=== PATIENT | female | born 1995 | race Two or more races ===

== ENCOUNTER 2016-10-13 23:42 | Inpatient (IN) | payer MEDICAID ==
[2016-10-13] MEDS ORDERED: Sodium Chloride 0.9% 1,000 ML IV ONE (23:51)
[2016-10-14] MEDS ORDERED: Flumazenil 0.1 m/mL 5mL Vial IVP ONE (00:12)
[2016-10-14] MEDS ORDERED: Naloxone 0.4 mg/mL 1mL Vial ONE ×2 (00:15→00:20)
[2016-10-14 00:21] LABS: % BASOPHILS 0.5 % (0.0-2.0); % EOSINOPHILS 1.4 % (0.0-5.0); % LYMPHOCYTES 41.4 % (20.0-50.0); % MONOCYTES 11.5 % (2.0-10.0); % NEUTROPHILS 45.2 % (40.0-80.0); HEMOGLOBIN 13.3 gm/dL (11.7-15.5); MEAN CELL VOLUME 93.5 fl (81-100); MEAN CORPUSCULAR HEMOGLOBIN 31.1 pg (27.0-31.0); MEAN CORPUSCULAR HGB CONC 33.3 pg (28.0-36.0); MEAN PLATELET VOLUME 7.5 fl; PLATELET COUNT 251 Th/cmm (150-400); RED BLOOD COUNT 4.27 Mil/cmm (3.80-5.10); RED CELL DISTRIBUTION WIDTH 12.2 % (11.5-20.0); WHITE BLOOD COUNT 11.3 Th/cmm (4.8-10.8)
[2016-10-14 00:33] LABS: INR 1.15 (0.5-1.4); PROTHROMBIN TIME (TEST) 12.1 SECONDS (9.5-11.5)
[2016-10-14 00:34] LABS: CHOLESTEROL 108 mg/dL (<200); TRIGLYCERIDES 42 mg/dL (<150)
[2016-10-14 00:36] LABS: ALB/GLOB RATIO 1.7 (1.0-1.8); ALKALINE PHOSPHATASE 42 U/L (34-104); ANION GAP 11.9 (7.0-16.0); BILIRUBIN,TOTAL 1.6 mg/dL (0.3-1.0); BUN - UREA NITROGEN 5 mg/dL (7-25); BUN/CREATININE RATIO 8.3; CALCIUM SERUM 8.7 mg/dL (8.6-10.3); CARBON DIOXIDE 21.6 mEq/L (21.0-31.0); CHLORIDE 87 mEq/L (98-107); CREATININE - SERUM 0.6 mg/dL (0.6-1.2); GLUCOSE 100 mg/dL (70-105); POTASSIUM SERUM 3.5 mEq/L (3.5-5.1); SGOT 24 U/L (13-39); SGPT/ALT 17 U/L (7-52)
[2016-10-14] MEDS ORDERED: Naloxone 0.4 mg/mL 1mL Vial IV ONE ×2 (00:39→00:40)
[2016-10-14] MEDS ORDERED: Flumazenil 0.1 m/mL 5mL Vial IVP STA ×2 (00:41→00:42)
[2016-10-14 00:42] LABS: SODIUM SERUM 117 mEq/L (136-145)
[2016-10-14] MEDS ORDERED: KCL 20mEq/100mL Premix 20 MEQ/100 ML PIGGYBACK IV ONE (00:49)
[2016-10-14] MEDS: KCL 20mEq/100mL Premix 20 MEQ/100 ML PIGGYBACK IV ONE ×2 (00:54→03:51)
[2016-10-14] MEDS ORDERED: Sodium Chloride 0.9% 1,000 ML IV ONE (01:05)
[2016-10-14] MEDS ORDERED: Haloperidol Lactate 5 mg/mL 1mL Vial ONE (01:35)
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
[2016-10-14] MEDS ORDERED: Haloperidol Lactate 5 mg/mL 1mL Vial IVP ONE (02:20)
[2016-10-14] MEDS ORDERED: D5-0.45NS 1,000 ML IV SCH (03:32)
[2016-10-14 07:54] LABS: URINE BILIRUBIN NEGATIVE (NEGATIVE); URINE BLOOD SMALL (NEGATIVE); URINE GLUCOSE (UA) NEGATIVE (NEGATIVE); URINE KETONE 40 mg/dL (NEGATIVE); URINE PROTEIN NEGATIVE (NEGATIVE); URINE UROBILINOGEN 0.2 E.U./dL (0.2 - 1.0)
[2016-10-14 07:57] LABS: URINE COLOR YELLOW
[2016-10-14 07:58] LABS: URINE BACTERIA OCCASIONAL /hpf (NONE SEEN); URINE EPITHELIAL CELLS OCCASIONAL /lpf (FEW); URINE WBC 0-2 /hpf (0-5)
[2016-10-14] MEDS ORDERED: D5-0.9%NS 1,000 ML IV SCH ×2 (08:51→13:19)
[2016-10-14 09:07] LABS: AMPHETAMINE URINE NEGATIVE (NEGATIVE); BARBITURATES URINE NEGATIVE (NEGATIVE)
[2016-10-14 09:08] LABS: METHADONE URINE NEGATIVE (NEGATIVE)
--- NOTE | 2016-10-14 09:13 | Diagnostic Imaging Report ---
Head CT without intravenous contrast Indication: Seizure Comparison: None Technique: Axial images were obtained from the vertex to the skull base without IV contrast. Coronal reconstructions were made. Total DLP: 729, [id number] FINDINGS: Images of the brain obtained without contrast demonstrate no acute hemorrhage. No mass lesions identified. The ventricles and basal cisterns are patent. The collier-white matter differentiation is preserved. There is no mass effect or midline shift. No skull fractures identified. No soft tissue swelling. There is mild mucosal thickening of the paranasal sinuses. IMPRESSION: No acute intracranial abnormality.
[2016-10-14 09:34] LABS: % BASOPHILS 2.5 % (0.0-2.0); % EOSINOPHILS 0.1 % (0.0-5.0); % LYMPHOCYTES 12.4 % (20.0-50.0); % MONOCYTES 8.2 % (2.0-10.0); % NEUTROPHILS 76.8 % (40.0-80.0); HEMOGLOBIN 15.1 gm/dL (11.7-15.5); MEAN CELL VOLUME 92.8 fl (81-100); MEAN CORPUSCULAR HEMOGLOBIN 30.9 pg (27.0-31.0); MEAN CORPUSCULAR HGB CONC 33.3 pg (28.0-36.0); MEAN PLATELET VOLUME 7.5 fl; NEUTROPHILE ABSOLUTE 10.8 Th/cmm (1.8-8.0); PLATELET COUNT 290 Th/cmm (150-400); RED BLOOD COUNT 4.88 Mil/cmm (3.80-5.10); RED CELL DISTRIBUTION WIDTH 12.2 % (11.5-20.0)
[2016-10-14 09:40] LABS: WHITE BLOOD COUNT 14.1 Th/cmm (4.8-10.8)
[2016-10-14 09:41] LABS: HEMATOCRIT 45.3 % (35.0-45.0)
--- NOTE | 2016-10-14 09:43 | History and Physical ---
History of Present Illness - HPI Chief Complaint: Altered mental status HPI: 20 year old female who presents to [facility] for possible seizure and change in mental status. Apparently her family members had witness a possible seizure event yesterday at her home which lasted about one minute. The patient has no previous history of seizure disorder. She had been vomiting all afternoon and currently takes no medications. The family members are concern that she may have taken drugs. She is not in school and not working. She has no obvious trauma noted. While in the ER the patient underwent CT head which did not show any acute changes. She was noted to have an initial NA 117. She was given IV fluids while in the ER. Patient was subsequently transferred to ICU for further evaluation and treatment. Vital Signs: Last Vital Signs Temp 98.2 F 10/14/16 04:00 Pulse 80 10/14/16 06:56 Resp 18 10/14/16 06:56 BP 107/60 10/14/16 06:56 Pulse Ox 100 10/14/16 06:56 Past Medical History Cardiovascular: Report: No Pertinent Hx Pulmonary: Report: No Pertinent Hx TURNER OFF: Report: No Pertinent Hx GI: Report: No Pertinent Hx Psych: Report: No Pertinent Hx Musculoskeletal: Report: No Pertinent Hx Rheumatologic: Report: No pertinent Hx Infectious Disease: Report: No Pertinent Hx Renal/: Report: No Pertinent Hx Endocrine: Report: No Pertinent Hx Dermatology: Report: No Pertinent Hx - Past Surgical History Past Surgical History: No pertinent Hx Family Medical History - Family Member Mother History Unknown: Yes Social History Smoke: No Alcohol: None Drugs: None Lives: Alone - Medications Home Medications: Home Medication Medication Instructions Recorded Type Unobtainable [Unobtainable] 10/13/16 History - Allergies Allergies/Adverse Reactions: Allergies Allergy/AdvReac Type Severity Reaction Status Date / Time No Known Allergies Allergy Verified 10/13/16 23:52 Review of Systems - Review of Systems Constitutional: Report: No Significant Eyes: Report: No Significant ENT: Report: No Significant Respiratory: Report: No Significant Cardiovascular: Report: No Significant Gastrointestinal: Report: Nausea Genitourinary: Report: No Significant Musculoskeletal: Report: No Significant Skin: Report: No Significant Neurological: Report: Confusion, Other (ALOC) Physical Exam - Physical Exam HEENT: Report: Ears Nose Throat within normal limits, Pharnyx within normal limits Neck: Report: Within normal limits, Thyromegaly Cardiovascular Systems: Report: +s1/s2 noted, Regular, Rate and Rhythm Respiratory: Report: Breath Sounds are within normal limits, Clear to Auscultation of lung ny Abdomen: Report: Non-tender to palpation Back: Report: Inspection of back is within normal limits. Extremities: Report: Non-tender to palpation. Skin: Report: Color of skin is within normal limits - Lab Results All Lab Results last 24 hours: Laboratory Last Values WBC 11.3 Th/cmm (4.8-10.8) H 10/14/16 00:05 RBC 4.27 Mil/cmm (3.80-5.10) 10/14/16 00:05 Hgb 13.3 gm/dL (11.7-15.5) 10/14/16 00:05 Hct 40.0 % (35.0-45.0) 10/14/16 00:05 MCV 93.5 fl (81-100) 10/14/16 00:05 MCH 31.1 pg (27.0-31.0) H 10/14/16 00:05 MCHC Differential 33.3 pg (28.0-36.0) 10/14/16 00:05 RDW 12.2 % (11.5-20.0) 10/14/16 00:05 Plt Count 251 Th/cmm (150-400) 10/14/16 00:05 MPV 7.5 fl 10/14/16 00:05 Neutrophils % 45.2 % (40.0-80.0) 10/14/16 00:05 Lymphocytes % 41.4 % (20.0-50.0) 10/14/16 00:05 Monocytes % 11.5 % (2.0-10.0) H 10/14/16 00:05 Eosinophils % 1.4 % (0.0-5.0) 10/14/16 00:05 Basophils % 0.5 % (0.0-2.0) 10/14/16 00:05 PT 12.1 SECONDS (9.5-11.5) H 10/14/16 00:05 INR 1.15 (0.5-1.4) 10/14/16 00:05 PTT (Actin FS) 26.1 SECONDS (26.0-38.0) 10/14/16 00:05 Sodium 117 mEq/L (136-145) L* 10/14/16 00:05 Potassium 3.5 mEq/L (3.5-5.1) 10/14/16 00:05 Chloride 87 mEq/L (98-107) L 10/14/16 00:05 Carbon Dioxide 21.6 mEq/L (21.0-31.0) 10/14/16 00:05 Anion Gap 11.9 (7.0-16.0) 10/14/16 00:05 BUN 5 mg/dL (7-25) L 10/14/16 00:05 Creatinine 0.6 mg/dL (0.6-1.2) 10/14/16 00:05 Est GFR ( Amer) > 60.0 ml/min (>90) 10/14/16 00:05 Est GFR (Non-Af Amer) > 60.0 ml/min 10/14/16 00:05 BUN/Creatinine Ratio 8.3 10/14/16 00:05 Glucose 100 mg/dL (70-105) 10/14/16 00:05 POC Glucose 108 MG/DL (70-105) H 10/14/16 00:16 Calcium 8.7 mg/dL (8.6-10.3) 10/14/16 00:05 Total Bilirubin 1.6 mg/dL (0.3-1.0) H 10/14/16 00:05 AST 24 U/L (13-39) 10/14/16 00:05 ALT 17 U/L (7-52) 10/14/16 00:05 Alkaline Phosphatase 42 U/L (34-104) 10/14/16 00:05 Troponin I 0.01 ng/mL (0.01-0.05) 10/14/16 00:05 Total Protein 6.7 gm/dL (6.0-8.3) 10/14/16 00:05 Albumin 4.2 gm/dL (3.7-5.3) 10/14/16 00:05 Globulin 2.5 gm/dL 10/14/16 00:05 Albumin/Globulin Ratio 1.7 (1.0-1.8) 10/14/16 00:05 Triglycerides 42 mg/dL (<150) 10/14/16 00:05 Cholesterol 108 mg/dL (<200) 10/14/16 00:05 LDL Cholesterol Direct 51 mg/dL (75-193) L 10/14/16 00:05 HDL Cholesterol 55 mg/dL (23-92) 10/14/16 00:05 TSH 2.44 uIU/ml (0.34-5.60) 10/14/16 00:05 Serum , Qual NEGATIVE (NEGATIVE) 10/14/16 00:05 Urine Source CLEAN C 10/14/16 07:30 Urine Color YELLOW 10/14/16 07:30 Urine Clarity SL. CLOUDY (CLEAR) 10/14/16 07:30 Urine pH 6.0 (4.6 - 8.0) 10/14/16 07:30 Ur Specific [place] 1.010 (1.005-1.030) 10/14/16 07:30 Urine Protein NEGATIVE mg/dL (NEGATIVE) 10/14/16 07:30 Urine Glucose (UA) NEGATIVE mg/dL (NEGATIVE) 10/14/16 07:30 Urine Ketones 40 mg/dL (NEGATIVE) H 10/14/16 07:30 Urine Blood SMALL (NEGATIVE) H 10/14/16 07:30 Urine Nitrate NEGATIVE (NEGATIVE) 10/14/16 07:30 Urine Bilirubin NEGATIVE (NEGATIVE) 10/14/16 07:30 Urine Urobilinogen 0.2 E.U./dL (0.2 - 1.0) 10/14/16 07:30 Ur Leukocyte Esterase NEGATIVE (NEGATIVE) 10/14/16 07:30 Urine RBC 1-2 /hpf (0-5) 10/14/16 07:30 Urine WBC 0-2 /hpf (0-5) 10/14/16 07:30 Ur Epithelial Cells OCCASIONAL /lpf (FEW) 10/14/16 07:30 Urine Bacteria OCCASIONAL /hpf (NONE SEEN) 10/14/16 07:30 Urine Test NEGATIVE 10/14/16 07:30 Salicylates < 25.0 mg/L (30.0-100.0) L 10/14/16 00:05 Urine Opiates Screen NEGATIVE (NEGATIVE) 10/14/16 07:30 Urine Methadone Screen NEGATIVE (NEGATIVE) 10/14/16 07:30 Acetaminophen < 10.0 ug/mL (10.0-30.0) L 10/14/16 00:05 Ur Barbiturates Screen NEGATIVE (NEGATIVE) 10/14/16 07:30 Ur Tricyclics Screen NEGATIVE (NEGATIVE) 10/14/16 07:30 Ur Phencyclidine Scrn NEGATIVE (NEGATIVE) 10/14/16 07:30 Amphetamines Screen NEGATIVE (NEGATIVE) 10/14/16 07:30 U Methamphetamines Scrn NEGATIVE (NEGATIVE) 10/14/16 07:30 U Benzodiazepines Scrn POSITIVE (NEGATIVE) H 10/14/16 07:30 U Cocaine Metab Screen NEGATIVE (NEGATIVE) 10/14/16 07:30 U Cannabinoids Screen POSITIVE (NEGATIVE) H 10/14/16 07:30 Laboratory Results - last 24 hr 10/14/16 10/14/16 10/14/16 07:30 07:30 07:30 Urine Source CLEAN C Urine Color YELLOW Urine Clarity SL. CLOUDY Urine pH 6.0 Ur Specific [place] 1.010 Urine Protein NEGATIVE Urine Glucose (UA) NEGATIVE Urine Ketones 40 H Urine Blood SMALL H Urine Nitrate NEGATIVE Urine Bilirubin NEGATIVE Urine Urobilinogen 0.2 Ur Leukocyte Esterase NEGATIVE Urine RBC 1-2 Urine WBC 0-2 Ur Epithelial Cells OCCASIONAL Urine Bacteria OCCASIONAL Urine Test NEGATIVE Urine Opiates Screen NEGATIVE Urine Methadone Screen NEGATIVE Ur Barbiturates Screen NEGATIVE Ur Tricyclics Screen NEGATIVE Ur Phencyclidine Scrn NEGATIVE Amphetamines Screen NEGATIVE U Methamphetamines Scrn NEGATIVE U Benzodiazepines Scrn POSITIVE H U Cocaine Metab Screen NEGATIVE U Cannabinoids Screen POSITIVE H - Assessment Assessment: ALOC Seizure disorder hyponatremia +Benzodiazepine +THC - Plan Plan: Will obtain a neuro consult with Dr. Brennan. Psychiatric consult with Dr. Kuo. Will order a repeat CBC, CMP. Will continue IV fluid hydration. Will order a nephrology consult with Dr. Barraza. Will keep patient NPO for now.
[2016-10-14 09:56] LABS: ALB/GLOB RATIO 1.5 (1.0-1.8); ALKALINE PHOSPHATASE 46 U/L (34-104); ANION GAP 14.2 (7.0-16.0); BILIRUBIN,TOTAL 1.6 mg/dL (0.3-1.0); BUN - UREA NITROGEN 5 mg/dL (7-25); BUN/CREATININE RATIO 8.3; CALCIUM SERUM 9.4 mg/dL (8.6-10.3); CARBON DIOXIDE 20.7 mEq/L (21.0-31.0); CHLORIDE 98 mEq/L (98-107); CREATININE - SERUM 0.6 mg/dL (0.6-1.2); GLUCOSE 98 mg/dL (70-105); POTASSIUM SERUM 4.9 mEq/L (3.5-5.1); SGOT 35 U/L (13-39); SGPT/ALT 20 U/L (7-52); SODIUM SERUM 128 mEq/L (136-145)
--- NOTE | 2016-10-14 13:18 | Diagnostic Imaging Report ---
CHEST X-RAY: AP view INDICATION: Aspiration COMPARISON: None FINDINGS: There is no focal consolidation or pleural effusions The heart is normal in size. There is mild spinal scoliosis. IMPRESSION: No focal consolidation. No evidence of aspiration.
[2016-10-14] MEDS: cefTRIAXone 1 GM in Sodium Chloride 0.9% 50 ML IV SCH (15:02)
[2016-10-14] MEDS ORDERED: Haloperidol Lactate 5 mg/mL 1mL Vial IM ONE (15:05)
--- NOTE | 2016-10-14 19:10 | Consultation ---
DATE OF CONSULTATION: 10/14/2016 INTERNATIONAL TRADE SPECIALIST: Erich Barraza M.D. REASON FOR CONSULTATION: Electrolyte imbalance and fluid management. HISTORY OF PRESENT ILLNESS: This is a 20-year-old female with no past medical history who was brought in because of altered level of consciousness. Three days prior to admission, the patient became paranoid, anxious with some panic attacks. She would leave the house and roam in the streets for several hours. She thought her food was tainted with poison, thus she would drink lots of water and only eat some fruits. A few hours prior to admission, she had generalized tonic-clonic seizure activity with this by her family for approximately a minute. She remained confused, disoriented, combative/aggressive/belligerent as well as delusional. She was then brought to the Emergency Room. CT scan of the head was negative. Her temperature was 98.2 with a white count of 11.3. Urine was positive for benzodiazepine as well as cannabinoids. She came in with a sodium of 117. She was started on normal saline and her sodium today was 128. PAST MEDICAL HISTORY: None. SOCIAL HISTORY: No history of smoking or alcohol abuse. She is a student, but not enrolled in school right now. FAMILY HISTORY: Noncontributory to present illness. REVIEW OF SYSTEMS: I was not able to obtain directly from the patient because she is currently sedated. PHYSICAL EXAMINATION: GENERAL: The patient is arousable, periods of agitation. VITAL SIGNS: Her temperature is 99, pulse 91, and blood pressure 112/51. SKIN: Good turgor, warm. No rash, no jaundice appreciated. HEENT: Head is normocephalic and atraumatic. Eyes: Extraocular muscles are intact. Pupils are equal, round, and reactive to light and accommodates. Anicteric sclerae. Waka conjunctivae. Nose: Midline nasal septum. Mouth: Dry mucosa with adequate dentition. NECK: Supple. No adenopathy, no thyromegaly, and no bruits. Trachea palpated in the midline. CHEST AND CVS: S1 and S2. No rub, murmur, nor gallop appreciated. Point of maximal impulse fifth intercostal space, left midclavicular line. No abdominal or femoral bruits appreciated. LUNGS: Equal expansion. No use of accessory muscles. No supraclavicular retractions, decreased breath sounds, clear to auscultation without any wheeze. BREASTS: Symmetrical, without any discharge. ABDOMEN: Flat, soft. Positive for bowel sounds. No bruits either diastolic or systolic. EXTREMITIES: No evidence of any edema, cyanosis, nor clubbing with palpable femoral, popliteal, and dorsalis pedis pulses. NEUROLOGIC: The patient is sedated and uncooperative at the present time. So, I was not able to pursue further my neuro exam. LABORATORY DATA: White count 14.1, hemoglobin 15.1, hematocrit 45, platelets 290,000, polys 76.8%, sodium 128, potassium 3.5, chloride 98, bicarbonate 20, BUN 5, creatinine 0.6, calcium 9.4. Total bili is 1.6, albumin 4.5, and urine specific gravity is 1.010. Ketones is 40. IMPRESSION: 1. Severe hyponatremia secondary to water intoxication with a very dilute urine, however, possibility of syndrome of inappropriate antidiuretic hormone secretion secondary to unknown drugs, could be contributory. 2. Seizure activity secondary to hyponatremia and again possibly from unknown drugs. 3. Acute psychotic secondary to unknown drugs that were taken. Presence of ketones in the urine, possibly result of starvation for the last few days to starvation ketosis. 5. Mild acute liver failure, etiology possibly again from intake of unknown drugs. PLAN: 1. Continue with normal saline. 2. Neuro checks. 3. Urinalysis. 4. Urine sodium and osmolality. 5. Serum osmolality and uric acid. Thank you, Dr. Gardner for this consult. I will follow the patient closely with you. JOB# [id number]
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
[2016-10-15 05:45] LABS: % BASOPHILS 0.7 % (0.0-2.0); % EOSINOPHILS 0.7 % (0.0-5.0); % LYMPHOCYTES 41.9 % (20.0-50.0); % MONOCYTES 11.1 % (2.0-10.0); % NEUTROPHILS 45.6 % (40.0-80.0); HEMATOCRIT 46.6 % (35.0-45.0); HEMOGLOBIN 15.5 gm/dL (11.7-15.5); MEAN CELL VOLUME 92.2 fl (81-100); MEAN CORPUSCULAR HEMOGLOBIN 30.7 pg (27.0-31.0); MEAN CORPUSCULAR HGB CONC 33.3 pg (28.0-36.0); MEAN PLATELET VOLUME 7.9 fl; NEUTROPHILE ABSOLUTE 4.2 Th/cmm (1.8-8.0); PLATELET COUNT 273 Th/cmm (150-400); RED BLOOD COUNT 5.06 Mil/cmm (3.80-5.10); RED CELL DISTRIBUTION WIDTH 12.4 % (11.5-20.0)
[2016-10-15 05:48] LABS: WHITE BLOOD COUNT 9.3 Th/cmm (4.8-10.8)
[2016-10-15 05:56] LABS: ANION GAP 12.2 (7.0-16.0); BUN - UREA NITROGEN 6 mg/dL (7-25); BUN/CREATININE RATIO 8.6; CALCIUM SERUM 9.7 mg/dL (8.6-10.3); CHLORIDE 101 mEq/L (98-107); CREATININE - SERUM 0.7 mg/dL (0.6-1.2); GLUCOSE 105 mg/dL (70-105); POTASSIUM SERUM 3.2 mEq/L (3.5-5.1); SODIUM SERUM 135 mEq/L (136-145); URIC ACID 3.6 mg/dL (2.3-6.6)
[2016-10-15] MEDS ORDERED: D5-0.9NS w/40 mEq KCL 1,000 ML IV SCH (06:49)
--- NOTE | 2016-10-15 08:23 | General Progress Note ---
Subjective - Review of Systems Service Date: 10/15/16 Subjective: Awake,Alert,Afebrile. Objective - Results Result Diagrams: 10/15/16 05:00 10/15/16 05:00 Recent Labs: Laboratory Last Values WBC 9.3 Th/cmm (4.8-10.8) D 10/15/16 05:00 RBC 5.06 Mil/cmm (3.80-5.10) 10/15/16 05:00 Hgb 15.5 gm/dL (11.7-15.5) 10/15/16 05:00 Hct 46.6 % (35.0-45.0) H 10/15/16 05:00 MCV 92.2 fl (81-100) 10/15/16 05:00 MCH 30.7 pg (27.0-31.0) 10/15/16 05:00 MCHC Differential 33.3 pg (28.0-36.0) 10/15/16 05:00 RDW 12.4 % (11.5-20.0) 10/15/16 05:00 Plt Count 273 Th/cmm (150-400) 10/15/16 05:00 MPV 7.9 fl 10/15/16 05:00 Neutrophils % 45.6 % (40.0-80.0) 10/15/16 05:00 Lymphocytes % 41.9 % (20.0-50.0) 10/15/16 05:00 Monocytes % 11.1 % (2.0-10.0) H 10/15/16 05:00 Eosinophils % 0.7 % (0.0-5.0) 10/15/16 05:00 Basophils % 0.7 % (0.0-2.0) 10/15/16 05:00 PT 12.1 SECONDS (9.5-11.5) H 10/14/16 00:05 INR 1.15 (0.5-1.4) 10/14/16 00:05 PTT (Actin FS) 26.1 SECONDS (26.0-38.0) 10/14/16 00:05 Sodium 135 mEq/L (136-145) L 10/15/16 05:00 Potassium 3.2 mEq/L (3.5-5.1) L 10/15/16 05:00 Chloride 101 mEq/L (98-107) 10/15/16 05:00 Carbon Dioxide 25.0 mEq/L (21.0-31.0) 10/15/16 05:00 Anion Gap 12.2 (7.0-16.0) 10/15/16 05:00 BUN 6 mg/dL (7-25) L 10/15/16 05:00 Creatinine 0.7 mg/dL (0.6-1.2) 10/15/16 05:00 Est GFR ( Amer) > 60.0 ml/min (>90) 10/15/16 05:00 Est GFR (Non-Af Amer) > 60.0 ml/min 10/15/16 05:00 BUN/Creatinine Ratio 8.6 10/15/16 05:00 Glucose 105 mg/dL (70-105) 10/15/16 05:00 POC Glucose 108 MG/DL (70-105) H 10/14/16 00:16 Uric Acid 3.6 mg/dL (2.3-6.6) 10/15/16 05:00 Calcium 9.7 mg/dL (8.6-10.3) 10/15/16 05:00 Total Bilirubin 1.6 mg/dL (0.3-1.0) H 10/14/16 09:25 AST 35 U/L (13-39) 10/14/16 09:25 ALT 20 U/L (7-52) 10/14/16 09:25 Alkaline Phosphatase 46 U/L (34-104) 10/14/16 09:25 Troponin I 0.01 ng/mL (0.01-0.05) 10/14/16 00:05 Total Protein 7.5 gm/dL (6.0-8.3) 10/14/16 09:25 Albumin 4.5 gm/dL (3.7-5.3) 10/14/16 09:25 Globulin 3.0 gm/dL 10/14/16 09:25 Albumin/Globulin Ratio 1.5 (1.0-1.8) 10/14/16 09:25 Triglycerides 42 mg/dL (<150) 10/14/16 00:05 Cholesterol 108 mg/dL (<200) 10/14/16 00:05 LDL Cholesterol Direct 51 mg/dL (75-193) L 10/14/16 00:05 HDL Cholesterol 55 mg/dL (23-92) 10/14/16 00:05 TSH 2.44 uIU/ml (0.34-5.60) 10/14/16 00:05 Serum , Qual NEGATIVE (NEGATIVE) 10/14/16 00:05 Urine Source CLEAN C 10/14/16 07:30 Urine Color YELLOW 10/14/16 07:30 Urine Clarity SL. CLOUDY (CLEAR) 10/14/16 07:30 Urine pH 6.0 (4.6 - 8.0) 10/14/16 07:30 Ur Specific [place] 1.010 (1.005-1.030) 10/14/16 07:30 Urine Protein NEGATIVE mg/dL (NEGATIVE) 10/14/16 07:30 Urine Glucose (UA) NEGATIVE mg/dL (NEGATIVE) 10/14/16 07:30 Urine Ketones 40 mg/dL (NEGATIVE) H 10/14/16 07:30 Urine Blood SMALL (NEGATIVE) H 10/14/16 07:30 Urine Nitrate NEGATIVE (NEGATIVE) 10/14/16 07:30 Urine Bilirubin NEGATIVE (NEGATIVE) 10/14/16 07:30 Urine Urobilinogen 0.2 E.U./dL (0.2 - 1.0) 10/14/16 07:30 Ur Leukocyte Esterase NEGATIVE (NEGATIVE) 10/14/16 07:30 Urine RBC 1-2 /hpf (0-5) 10/14/16 07:30 Urine WBC 0-2 /hpf (0-5) 10/14/16 07:30 Ur Epithelial Cells OCCASIONAL /lpf (FEW) 10/14/16 07:30 Urine Bacteria OCCASIONAL /hpf (NONE SEEN) 10/14/16 07:30 Ur Random Sodium 61 mmol/L 10/14/16 00:05 Urine Test NEGATIVE 10/14/16 07:30 Salicylates < 25.0 mg/L (30.0-100.0) L 10/14/16 00:05 Urine Opiates Screen NEGATIVE (NEGATIVE) 10/14/16 07:30 Urine Methadone Screen NEGATIVE (NEGATIVE) 10/14/16 07:30 Acetaminophen < 10.0 ug/mL (10.0-30.0) L 10/14/16 00:05 Ur Barbiturates Screen NEGATIVE (NEGATIVE) 10/14/16 07:30 Ur Tricyclics Screen NEGATIVE (NEGATIVE) 10/14/16 07:30 Ur Phencyclidine Scrn NEGATIVE (NEGATIVE) 10/14/16 07:30 Amphetamines Screen NEGATIVE (NEGATIVE) 10/14/16 07:30 U Methamphetamines Scrn NEGATIVE (NEGATIVE) 10/14/16 07:30 U Benzodiazepines Scrn POSITIVE (NEGATIVE) H 10/14/16 07:30 U Cocaine Metab Screen NEGATIVE (NEGATIVE) 10/14/16 07:30 U Cannabinoids Screen POSITIVE (NEGATIVE) H 10/14/16 07:30 RPR NONREACTIVE (NONREACTIVE) 10/14/16 00:05 - Physical Exam Vitals and I&O: Vital Signs Temp 97.0 F 10/15/16 04:00 Pulse 110 10/15/16 04:00 Resp 18 10/15/16 04:00 BP 133/87 10/15/16 04:00 Pulse Ox 100 10/15/16 04:00 Intake & Output 10/14/16 10/15/16 10/15/16 18:59 06:59 18:59 Intake Total 1600 Balance 1600 Weight (lbs) 43.046 kg Intake: Oral 1600 Other: # Voids 2 Active Medications: Current Medications Hydrocortisone (Anusol-Hc) 25 mg RC BID [facility] Stop: 12/14/16 08:59 Ceftriaxone Sodium 1 gm/ (Sodium Chloride) 50 mls @ 100 mls/hr IV Q24HR [facility] Stop: 12/13/16 13:59 Last Admin: 10/14/16 15:02 Dose: Not Given Potassium Chloride/Dextrose/Sod Cl (D5-0.9ns W/40 Meq Kcl) 1,000 mls @ 75 mls/ hr IV .[id number] [facility] Stop: 12/14/16 06:48 Ibuprofen (Motrin) 400 mg PO TID [facility] Stop: 12/14/16 08:59 Lorazepam (Ativan) 1 mg IM Q4HR PRN; Protocol PRN Reason: Agitation Stop: 12/13/16 15:06 Ondansetron HCl (Zofran) 4 mg IV Q6H PRN PRN Reason: Nausea / Vomiting Stop: 12/13/16 03:31 General: Alert, No acute distress HEENT: Atraumatic, PERRLA, EOMI Neck: Supple Cardiovascular: Regular rate, Normal S1, Normal S2 Lungs: Clear to auscultation Abdomen: Bowel sounds Extremities: no Clubbing, no Cyanosis, no Edema Neurological: Normal gait Assessment/Plan - Problem List Patient Problems: All Active Problems Altered mental state (Acute) R41.82 Hypokalemia (Acute) E87.6 Hyponatremia (Acute) E87.1 Low back pain (Acute) M54.5 Positive urine drug screen (Acute) R82.5 Seizure disorder (Acute) G40.909 - Assessment Assessment: altered mental status .... improved. hyponatremia Na 117->128->135 hypokalemia K 3.2 seizure disorder ... neurology consults pending, CT head negative psychiatric disorder ... appreciate psychiatric evaluation. +UDS back pain ... will order ibuprofen PRN hemorrhoids ... will order anusol cream HC - Plan Plan: altered mental status .... improved. hyponatremia Na 117->128->135 hypokalemia K 3.2 seizure disorder ... neurology consults pending, CT head negative psychiatric disorder ... appreciate psychiatric evaluation. +UDS back pain ... will order ibuprofen PRN hemorrhoids ... will order anusol cream Nutritional Asmnt/Malnutr-PDOC - Dietary Evaluation Malnutrition Findings (Please click <Entered> for more info): Nutritional Asmnt/Malnutrition Start: 10/14/16 14: 18 Text: Status: Complete Freq: Document 10/14/16 14:18 GSUN (Rec: 10/14/16 14:44 GSUN [email or web address]) Nutritional Asmnt/Malnutrition Patient General Information Nutritional Screening High Risk Screening Diagnosis ALOC, seizure disorder, positive benzodiazepine, positive THC Pertinent Medical Hx/Surgical Hx No pertinent medical hx Subjective Information 20 year old female from home. Pt admitted due to vomitting, seizure, ALOC. Spoke to family members at bedside in the morning, pt was asleep. Aunt reported pt recently (~3 days ago) began to believe that food are tainted and would only eat raw vegetables and sealed items. Per Aunt, pt is not vegetarian and was eating raw carrots yesterday without difficulties, no allergies. Spoke to pt and father in the afternoon, confirmed with pt above information provided by aunt. Spoke to RN Asya and MD Barraza, pt to be started on soft/bland diet. FNS provided bottled water, jello, pudding. Pt is thin and small frame, no muscle wasting, minimal fat stores. CBW 101.9lb via bedscale. Father stated pt has always been lean. Current Diet Order/ Nutrition Support Soft/bland Pertinent Medications D5-0.9%ns, Zofran Pertinent Labs Reviewed. Nutritional Hx/Data Height 1.68 m Height (Calculated Centimeters) 167.6 Current Weight (lbs) 46.221 kg Weight (Calculated Kilograms) 46.2 Weight (Calculated Grams) 44458.1 [place] Body Weight 130 Weight Status Underweight GI Symptoms Skin Integrity/Comment: José Luis 17. Skin intact. Estimated Nutritional Goals Calories/Kcals/Kg IBW 130lb/59.1kg Kcals Calculated 1478-1773kcal (25-30kcal/kg) Protein Calculated 47-59g (0.8-1g/kg) Fluid: ml 1478-1773ml (1ml/kcal) Nutritional Problem 1. Problem Problem Food, nutrition, and nutrition -related knowledge deficit related to Etiology personal believes, possibly ALOC as aunt reported this is new aeb Signs/Symptoms: pt believes food is tainted, pt believes vitamin D from sun is nutritiously adequate to sustain Intervention/Recommendation Comments 1. When medically appropriate, recommend advancing diet to regular diet. Currently on soft/bland diet, recent seizures. 2. FNS will honor pt's food preferences as able. Aunt reported, information confirmed with pt, that pt began to believe food is tainted around 3 days ago, pt would only tolerate sealed bottles/items and raw vegetables. 3. Monitor weight. CBW 101.9lb during visit, BMI 16.4, underweight, no muscle wasting noted. Expected Outcomes/Goals Expected Outcomes/Goals 1. Pt to resume regular diet and meet at least 75% of estimated nutritional needs with tolerance.
--- NOTE | 2016-10-15 09:50 | Consultation ---
DATE OF CONSULTATION: 10/15/2016 NEUROLOGY CONSULT HISTORY OF PRESENT ILLNESS: The patient is a 20-year-old. Question of seizure at home. Since the patient here, had no seizures. The patient noted to be abnormal behavior, but at the moment seems to be doing okay. She is answering questions. PAST MEDICAL HISTORY: The patient with abnormal behavior. Question of drug. MEDICATIONS: As per reconciliation. Here, the patient is on antibiotics. PAST SURGICAL HISTORY: None recently. REVIEW OF SYSTEMS: No headache. Speech is okay. The patient has no chest pain, no shortness of breath. JOB# [id number]
--- NOTE | 2016-10-15 13:21 | General Progress Note ---
Subjective - Review of Systems Service Date: 10/15/16 Subjective: more cooperative today Objective - Results Result Diagrams: 10/15/16 05:00 10/15/16 05:00 Recent Labs: Laboratory Last Values WBC 9.3 Th/cmm (4.8-10.8) D 10/15/16 05:00 RBC 5.06 Mil/cmm (3.80-5.10) 10/15/16 05:00 Hgb 15.5 gm/dL (11.7-15.5) 10/15/16 05:00 Hct 46.6 % (35.0-45.0) H 10/15/16 05:00 MCV 92.2 fl (81-100) 10/15/16 05:00 MCH 30.7 pg (27.0-31.0) 10/15/16 05:00 MCHC Differential 33.3 pg (28.0-36.0) 10/15/16 05:00 RDW 12.4 % (11.5-20.0) 10/15/16 05:00 Plt Count 273 Th/cmm (150-400) 10/15/16 05:00 MPV 7.9 fl 10/15/16 05:00 Neutrophils % 45.6 % (40.0-80.0) 10/15/16 05:00 Lymphocytes % 41.9 % (20.0-50.0) 10/15/16 05:00 Monocytes % 11.1 % (2.0-10.0) H 10/15/16 05:00 Eosinophils % 0.7 % (0.0-5.0) 10/15/16 05:00 Basophils % 0.7 % (0.0-2.0) 10/15/16 05:00 PT 12.1 SECONDS (9.5-11.5) H 10/14/16 00:05 INR 1.15 (0.5-1.4) 10/14/16 00:05 PTT (Actin FS) 26.1 SECONDS (26.0-38.0) 10/14/16 00:05 Sodium 135 mEq/L (136-145) L 10/15/16 05:00 Potassium 3.2 mEq/L (3.5-5.1) L 10/15/16 05:00 Chloride 101 mEq/L (98-107) 10/15/16 05:00 Carbon Dioxide 25.0 mEq/L (21.0-31.0) 10/15/16 05:00 Anion Gap 12.2 (7.0-16.0) 10/15/16 05:00 BUN 6 mg/dL (7-25) L 10/15/16 05:00 Creatinine 0.7 mg/dL (0.6-1.2) 10/15/16 05:00 Est GFR ( Amer) > 60.0 ml/min (>90) 10/15/16 05:00 Est GFR (Non-Af Amer) > 60.0 ml/min 10/15/16 05:00 BUN/Creatinine Ratio 8.6 10/15/16 05:00 Glucose 105 mg/dL (70-105) 10/15/16 05:00 POC Glucose 108 MG/DL (70-105) H 10/14/16 00:16 Uric Acid 3.6 mg/dL (2.3-6.6) 10/15/16 05:00 Calcium 9.7 mg/dL (8.6-10.3) 10/15/16 05:00 Total Bilirubin 1.6 mg/dL (0.3-1.0) H 10/14/16 09:25 AST 35 U/L (13-39) 10/14/16 09:25 ALT 20 U/L (7-52) 10/14/16 09:25 Alkaline Phosphatase 46 U/L (34-104) 10/14/16 09:25 Troponin I 0.01 ng/mL (0.01-0.05) 10/14/16 00:05 Total Protein 7.5 gm/dL (6.0-8.3) 10/14/16 09:25 Albumin 4.5 gm/dL (3.7-5.3) 10/14/16 09:25 Globulin 3.0 gm/dL 10/14/16 09:25 Albumin/Globulin Ratio 1.5 (1.0-1.8) 10/14/16 09:25 Triglycerides 42 mg/dL (<150) 10/14/16 00:05 Cholesterol 108 mg/dL (<200) 10/14/16 00:05 LDL Cholesterol Direct 51 mg/dL (75-193) L 10/14/16 00:05 HDL Cholesterol 55 mg/dL (23-92) 10/14/16 00:05 TSH 2.44 uIU/ml (0.34-5.60) 10/14/16 00:05 Serum , Qual NEGATIVE (NEGATIVE) 10/14/16 00:05 Urine Source CLEAN C 10/14/16 07:30 Urine Color YELLOW 10/14/16 07:30 Urine Clarity SL. CLOUDY (CLEAR) 10/14/16 07:30 Urine pH 6.0 (4.6 - 8.0) 10/14/16 07:30 Ur Specific [place] 1.010 (1.005-1.030) 10/14/16 07:30 Urine Protein NEGATIVE mg/dL (NEGATIVE) 10/14/16 07:30 Urine Glucose (UA) NEGATIVE mg/dL (NEGATIVE) 10/14/16 07:30 Urine Ketones 40 mg/dL (NEGATIVE) H 10/14/16 07:30 Urine Blood SMALL (NEGATIVE) H 10/14/16 07:30 Urine Nitrate NEGATIVE (NEGATIVE) 10/14/16 07:30 Urine Bilirubin NEGATIVE (NEGATIVE) 10/14/16 07:30 Urine Urobilinogen 0.2 E.U./dL (0.2 - 1.0) 10/14/16 07:30 Ur Leukocyte Esterase NEGATIVE (NEGATIVE) 10/14/16 07:30 Urine RBC 1-2 /hpf (0-5) 10/14/16 07:30 Urine WBC 0-2 /hpf (0-5) 10/14/16 07:30 Ur Epithelial Cells OCCASIONAL /lpf (FEW) 10/14/16 07:30 Urine Bacteria OCCASIONAL /hpf (NONE SEEN) 10/14/16 07:30 Ur Random Sodium 61 mmol/L 10/14/16 00:05 Urine Test NEGATIVE 10/14/16 07:30 Salicylates < 25.0 mg/L (30.0-100.0) L 10/14/16 00:05 Urine Opiates Screen NEGATIVE (NEGATIVE) 10/14/16 07:30 Urine Methadone Screen NEGATIVE (NEGATIVE) 10/14/16 07:30 Acetaminophen < 10.0 ug/mL (10.0-30.0) L 10/14/16 00:05 Ur Barbiturates Screen NEGATIVE (NEGATIVE) 10/14/16 07:30 Ur Tricyclics Screen NEGATIVE (NEGATIVE) 10/14/16 07:30 Ur Phencyclidine Scrn NEGATIVE (NEGATIVE) 10/14/16 07:30 Amphetamines Screen NEGATIVE (NEGATIVE) 10/14/16 07:30 U Methamphetamines Scrn NEGATIVE (NEGATIVE) 10/14/16 07:30 U Benzodiazepines Scrn POSITIVE (NEGATIVE) H 10/14/16 07:30 U Cocaine Metab Screen NEGATIVE (NEGATIVE) 10/14/16 07:30 U Cannabinoids Screen POSITIVE (NEGATIVE) H 10/14/16 07:30 RPR NONREACTIVE (NONREACTIVE) 10/14/16 00:05 - Physical Exam Vitals and I&O: Vital Signs Temp 97.0 F 10/15/16 04:00 Pulse 110 10/15/16 04:00 Resp 18 10/15/16 04:00 BP 133/87 10/15/16 04:00 Pulse Ox 100 10/15/16 04:00 Intake & Output 10/14/16 10/15/16 10/15/16 18:59 06:59 18:59 Intake Total 1600 Balance 1600 Weight (lbs) 43.046 kg Intake: Oral 1600 Other: # Voids 2 Active Medications: Current Medications Hydrocortisone (Anusol-Hc) 25 mg RC BID [facility] Stop: 12/14/16 08:59 Last Admin: 10/15/16 09:02 Dose: 25 mg Ceftriaxone Sodium 1 gm/ (Sodium Chloride) 50 mls @ 100 mls/hr IV Q24HR [facility] Stop: 12/13/16 13:59 Last Admin: 10/14/16 15:02 Dose: Not Given Potassium Chloride/Dextrose/Sod Cl (D5-0.9ns W/40 Meq Kcl) 1,000 mls @ 75 mls/ hr IV .[id number] [facility] Stop: 12/14/16 06:48 Ibuprofen (Motrin) 400 mg PO TIDWM [facility] Stop: 12/14/16 08:59 Last Admin: 10/15/16 09:02 Dose: 400 mg Lorazepam (Ativan) 1 mg IM Q4HR PRN; Protocol PRN Reason: Agitation Stop: 12/13/16 15:06 Ondansetron HCl (Zofran) 4 mg IV Q6H PRN PRN Reason: Nausea / Vomiting Stop: 12/13/16 03:31 Quetiapine Fumarate (Seroquel) 50 mg PO HS [facility]ITH[facility] PRN Reason: Protocol Stop: 12/14/16 20:59 General: Alert, No acute distress HEENT: Atraumatic, PERRLA, EOMI Neck: Supple Cardiovascular: Regular rate, Normal S1, Normal S2 Lungs: Clear to auscultation Abdomen: Bowel sounds Extremities: no Clubbing, no Cyanosis, no Edema Neurological: Normal gait Skin: no Rash Psych/Mental Status: Other (psychosis) Assessment/Plan - Problem List Patient Problems: All Active Problems Altered mental state (Acute) R41.82 Hypokalemia (Acute) E87.6 Hyponatremia (Acute) E87.1 Low back pain (Acute) M54.5 Positive urine drug screen (Acute) R82.5 Seizure disorder (Acute) G40.909 - Assessment Assessment: Hyponatremia possible water intoxication, possible SIADH Seizure activity Acute Psychotic Decompensation Mild Acute Liver Failure - Plan Plan: Lab - Result Diagrams 10/15/16 05:00 10/15/16 05:00 Current Medications Hydrocortisone (Anusol-Hc) 25 mg RC BID [facility] Stop: 12/14/16 08:59 Last Admin: 10/15/16 09:02 Dose: 25 mg Ceftriaxone Sodium 1 gm/ (Sodium Chloride) 50 mls @ 100 mls/hr IV Q24HR [facility] Stop: 12/13/16 13:59 Last Admin: 10/14/16 15:02 Dose: Not Given Potassium Chloride/Dextrose/Sod Cl (D5-0.9ns W/40 Meq Kcl) 1,000 mls @ 75 mls/ hr IV .[id number] [facility] Stop: 12/14/16 06:48 Ibuprofen (Motrin) 400 mg PO TIDWM [facility] Stop: 12/14/16 08:59 Last Admin: 10/15/16 09:02 Dose: 400 mg Lorazepam (Ativan) 1 mg IM Q4HR PRN; Protocol PRN Reason: Agitation Stop: 12/13/16 15:06 Ondansetron HCl (Zofran) 4 mg IV Q6H PRN PRN Reason: Nausea / Vomiting Stop: 12/13/16 03:31 Quetiapine Fumarate (Seroquel) 50 mg PO HS [facility] PRN Reason: Protocol Stop: 12/14/16 20:59 Agree w/ K replacement Na up to 135 more cooperative per staff f/u electrolytes Nutritional Asmnt/Malnutr-PDOC - Dietary Evaluation Malnutrition Findings (Please click <Entered> for more info): Nutritional Asmnt/Malnutrition Start: 10/14/16 14: 18 Text: Status: Complete Freq: Document 10/14/16 14:18 LEON (Rec: 10/14/16 14:44 GSUN [email or web address]) Nutritional Asmnt/Malnutrition Patient General Information Nutritional Screening High Risk Screening Diagnosis ALOC, seizure disorder, positive benzodiazepine, positive THC Pertinent Medical Hx/Surgical Hx No pertinent medical hx Subjective Information 20 year old female from home. Pt admitted due to vomitting, seizure, ALOC. Spoke to family members at bedside in the morning, pt was asleep. Aunt reported pt recently (~3 days ago) began to believe that food are tainted and would only eat raw vegetables and sealed items. Per Aunt, pt is not vegetarian and was eating raw carrots yesterday without difficulties, no allergies. Spoke to pt and father in the afternoon, confirmed with pt above information provided by aunt. Spoke to RAYNA Sky and MD Barraza, pt to be started on soft/bland diet. FNS provided bottled water, jello, pudding. Pt is thin and small frame, no muscle wasting, minimal fat stores. CBW 101.9lb via bedscale. Father stated pt has always been lean. Current Diet Order/ Nutrition Support Soft/bland Pertinent Medications D5-0.9%ns, Zofran Pertinent Labs Reviewed. Nutritional Hx/Data Height 1.68 m Height (Calculated Centimeters) 167.6 Current Weight (lbs) 46.221 kg Weight (Calculated Kilograms) 46.2 Weight (Calculated Grams) 91493.1 [place] Body Weight 130 Weight Status Underweight GI Symptoms Skin Integrity/Comment: José Luis 17. Skin intact. Estimated Nutritional Goals Calories/Kcals/Kg IBW 130lb/59.1kg Kcals Calculated 1478-1773kcal (25-30kcal/kg) Protein Calculated 47-59g (0.8-1g/kg) Fluid: ml 1478-1773ml (1ml/kcal) Nutritional Problem 1. Problem Problem Food, nutrition, and nutrition -related knowledge deficit related to Etiology personal believes, possibly ALOC as aunt reported this is new aeb Signs/Symptoms: pt believes food is tainted, pt believes vitamin D from sun is nutritiously adequate to sustain Intervention/Recommendation Comments 1. When medically appropriate, recommend advancing diet to regular diet. Currently on soft/bland diet, recent seizures. 2. FNS will honor pt's food preferences as able. Aunt reported, information confirmed with pt, that pt began to believe food is tainted around 3 days ago, pt would only tolerate sealed bottles/items and raw vegetables. 3. Monitor weight. CBW 101.9lb during visit, BMI 16.4, underweight, no muscle wasting noted. Expected Outcomes/Goals Expected Outcomes/Goals 1. Pt to resume regular diet and meet at least 75% of estimated nutritional needs with tolerance.
[2016-10-15] MEDS: cefTRIAXone 1 GM in Sodium Chloride 0.9% 50 ML IV SCH (15:43)
--- NOTE | 2016-10-15 17:19 | Consultation ---
DATE OF CONSULTATION: ADDENDUM NEUROLOGIC: The patient awake. She will answer. She gives me her name, her age. She did not know the date, but she knew the month and year. She was able to name simple objects. CRANIAL: Pupils reactive to light. Full eye movement. No nystagmus. No facial weakness. MOTOR: She will lift both arms up. She will lift both legs up. Reflexes about 2+ or so. INVESTIGATIONS: CT scan of the head negative. IMPRESSION: 1. Questionable seizure. We will monitor the patient closely. 2. The patient positive drug for marijuana and benzodiazepines. 3. The patient has possible underlying psychosis. PLAN: At the moment continue to monitor the patient closely. [facility]# [id number]
--- NOTE | 2016-10-15 22:58 | Consultation ---
DATE OF CONSULTATION: 10/15/2016 HISTORY OF PRESENT ILLNESS: This is a 20-year-old female with no known psych history, but per family, she has been "not herself for the past 2 weeks." On [id number], the patient is bizarre, paranoid, talking into her nursing [place], while she speaks with me as though she is recording her voice. When I asked her about this, she states, "It makes me feel more comfortable." The patient's eyes are darting around the room answering nonsensically, suspicious of my interventions, looking out the hallway. She knows she is in the hospital. She is not quite sure why she is here. Minimal interview, poor historian, highly guarded and evasive with questioning. PAST PSYCHIATRIC HISTORY: Unclear. FAMILY HISTORY: Bipolar in the family. SOCIAL HISTORY: Father at bedside. MENTAL STATUS EXAMINATION: Stated age, fair eye contact, but shifting eye contact. Appearing suspicious, paranoid. Thought processes were tangential, fragmented. No overt SI or HI, but she does appear quite psychotic, poor insight, and poor judgment. PROVISIONAL DIAGNOSIS: Mood unspecified; psychosis, unspecified; and cannabis use disorder, unspecified. MEDICAL DIAGNOSIS: Seizures. RECOMMENDATIONS AND PLAN: The patient is currently on a 5150 hold. She will likely need psychotropic medications, transfer to inpatient psych. JOB# [id number]
--- NOTE | 2016-10-16 10:14 | Discharge Summary ---
DATE OF DISCHARGE: 10/15/2016 PRELIMINARY DIAGNOSES: 1. Altered level of consciousness. 2. Possible seizure disorder. 3. Severe hyponatremia. 4. Psychosis unspecified. 5. Positive urine drug screen for benzodiazepine and THC. DISCHARGE DIAGNOSES: 1. Altered level of consciousness. 2. Possible seizure disorder. 3. Severe hyponatremia. 4. Psychosis unspecified. 5. Positive urine drug screen for benzodiazepine and THC. BRIEF HISTORY OF PRESENT ILLNESS: This is a 20-year-old female who presents to [facility] ER for possible seizure disorder and change in mental status. The patient was apparently with her family members who had witnessed the possible seizure event one day prior to admission while at home, which last about one minute. The patient has no previous history of seizure disorder. States that she has been vomiting all afternoon, currently is not on any medications. Of note, the family members were concerned that she may have been taking illicit drugs. She is currently not working or in school. While in the ER, the patient underwent a CT of her head, which did not show any acute changes. Her initial lab work done in the ER revealed sodium of 117 IV fluids with normal saline. Her white count was also noted to be elevated at 11.3. She was subsequently transferred to ICU for further evaluation and treatment. HOSPITAL COURSE: The patient did improve during her hospital stay. Her repeat lab work revealed sodium initially 117, which was repeated later during that day and had increased to 128. Her last lab work done on day of discharge revealed sodium of 135. The patient was more awake and alert and arousable, but continued to exhibit this change in her normal behavior. The patient was seen and evaluated by Psychiatry, please see dictated report. The patient was subsequently transferred to higher level of care, was apparently placed on a 5150 during her stay due to her change in behavior and needed further inpatient psychiatric treatment at [place]. [facility]# [id number]
--- NOTE | 2016-10-20 23:59 | Admit Criteria Form ---
Admit Criteria Forms - Admit Criteria Diagnosis: HYPONATREMIA; HYPERNATREMIA; HYPOKALEMIA; HYPERKALEMIA; HYPOCALCEMIA; HYPERCALCEMIA Clinical Indications for Inpatient Care (Place 'X' for any and all applicable criteria): Ongoing inpatient care may be indicated for ANY ONE of the following [G](1)(2)(3 )(5): [X ]I. Hyponatremia with ANY ONE of the following: [ ]a) Sodium less than 130 mEq/L (mmol/L) (new) (6)(22) [X ]b) Sodium less than 135 mEq/L (mmol/L) with ANY ONE of the following: [ ]i) Severe medical etiology requiring inpatient management (eg, heart failure, hypovolemia) [X ]ii) Altered mental status [ ]iii) Seizures [ ]II. Hypernatremia with ANY ONE of the following: [ ]a) Sodium greater than 155 mEq/L (mmol/L) [ ]b) Sodium greater than 150 mEq/L (mmol/L) with ANY ONE of the following: [ ] i) Altered mental status [ ]ii) Seizures [ ]iii) Severe medical etiology (eg, hypovolemia, diabetes insipidus) [ ]iv) Severe weakness [ ]v) Severe medical etiology (eg, hemolysis, infection, drug overdose) [ ]III. Hypokalemia with ANY ONE of the following: [ ]a) Potassium less than 2.5 mEq/L (mmol/L) despite outpatient and emergency treatment [ ]b) Potassium less than 3.0 mEq/L (mmol/L) with ANY ONE of the following: [ ]i) Weakness [ ]ii) Cardiac abnormality (eg, arrhythmia, conduction disturbance) [ ]iii) Cardiac ischemia [ ]iv) Ileus [ ]v) Ongoing medical cause requiring inpatient management. ( e.g., acute renal wasting, SIADH) [ ]vi) Other severe symptoms [ ] IV. Hyperkalemia with ANY ONE of the following: [ ]a) Potassium greater than 6.5 mEq/L (mmol/L) [ ]b) Potassium greater than 5 mEq/L (mmol/L) with ANY ONE of the following: [ ]i) Severe ECG findings [H] [ ]ii) Acute worsening of renal failure (creatinine greater than 2.5 mg/dL (221 micromoles/L) or significant elevation for age and size) [ ] V. Hypocalcemia with ANY ONE of the following: [ ]a) Calcium less than 7 mg/dL (1.75 mmol/L) despite outpatient and emergency treatment(19) [ ]b) Calcium less than 8 mg/dL (2 mmol/L) with significant symptoms or findings; examples include: [ ]i) Cardiac abnormality (eg, arrhythmia or conduction disturbance) [ ]ii) Altered mental status [ ]iii) Seizures [ ]iv) Breathing difficulty [ ]v) Muscle spasms [ ]. Hypercalcemia with ANY ONE of the following: [ ]a) Calcium greater than 14 mg/dL (3.5 mmol/L) [ ]b) Calcium greater than 12 mg/dL (3 mmol/L) with ANY ONE of the following: [ ]i) Significant dehydration or hypovolemia as indicated by ANY ONE of the following(2): [ ]1. Clinically significant dehydration as indicated by ANY ONE of the following: [ ]A. Acute loss of weight from baseline (5% of body weight in adults, 9% in pediatric patients) [ ]B. Hemodynamic instability [ ]C. Acute renal failure [ ]D. Serum sodium greater than 150 mEq/L (mmol/L) [ ]2) Dehydration that is persistent indicated by ALL of the following: [ ]A. Oral rehydration therapy not tolerated or insufficient to adequately correct dehydration [ ]B. Appropriate intravenous treatment (eg, fluids ) does not readily correct dehydration ie, after 12 to 24 hours of treatment) [ ]ii) Significant symptoms or findings; examples include: [ ]1) Altered mental status [ ]2) Cardiac abnormality (eg, arrhythmia, conduction disturbance) [ ]3) Cardiac abnormality (eg, arrhythmia, conduction disturbance) The original [facility] content created by [employer] has been revised. The portions of the content which have been revised are identified through the use of italic text or in bold, and [facility] has neither reviewed nor approved the modified material. All other unmodified content is copyright [facility] [employer] [facility] Please see references footnoted in the original [facility] edition 2016 Admit Criteria Met?: Yes
== END 2016-10-15 18:30 | DRG 279 ==
LOC: ER 23:42 → OBSVTOIN 10-14 02:00 → ICU 10-14 02:00 → MSI 10-14 18:20
PROVIDERS: ADMIT Family Medicine; ATTEND Family Medicine
DX: K72.00 Acute and subacute hepatic failure without coma (principal); G93.41 Metabolic encephalopathy; E87.1 Hypo-osmolality and hyponatremia; E87.79 Other fluid overload; R41.82 Altered mental status, unspecified; G40.909 Epilepsy, unspecified, not intractable, without status epilepticus; F39 Unspecified mood [affective] disorder; F29 Unspecified psychosis not due to a substance or known physiological condition; F12.90 Cannabis use, unspecified, uncomplicated; F41.9 Anxiety disorder, unspecified; F19.94 Other psychoactive substance use, unspecified with psychoactive substance-induced mood disorder; E87.6 Hypokalemia; M54.9 Dorsalgia, unspecified; K64.9 Unspecified hemorrhoids; T42.4X5A Adverse effect of benzodiazepines, initial encounter; T40.7X5A Adverse effect of cannabis (derivatives), initial encounter; Y92.89 Other specified places as the place of occurrence of the external cause
CPT/HCPCS: 36415-UA; 70450-TC; 71010-TC; 80048-TC; 80053-TC; 80061-TC; 80307; 80329-TC; 81001-TC; 81025-TC; 82948-90; 83930-90; 83935-90; 84300-TC; 84443-TC; 84484-TC; 84550-TC; 84703-TC; 85025-TC; 85610-TC; 85730-TC; 86592-TC; 90779; 96374; J0696; J1200; J1630; J2060; J2405; J3480; J7030; J7042; X6614; Z7502